=== PATIENT | male | born 1995 | race Two or more races ===

== ENCOUNTER 2023-05-11 12:07 | Emergency (ER) | payer OTHER ==
[~2023-05-11] VITALS: Ht 172.7 cm; Wt 63.5 kg
== END 2023-05-11 21:16 | disposition home or self-care (01) ==
LOC: ER 12:07
DX: K29.00 Acute gastritis without bleeding (principal); K52.89 Other specified noninfective gastroenteritis and colitis; Z20.822 Contact with and (suspected) exposure to COVID-19; Z88.0 Allergy status to penicillin; Z91.011 Allergy to milk products